=== PATIENT | female | born 1985 | race Caucasian/White ===

== ENCOUNTER 2016-12-21 00:13 | Emergency (ER) | payer SELFPAY ==
[2016-12-21 00:28] VITALS: BP 123/82
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
== END 2016-12-21 02:01 | disposition home or self-care (01) ==
LOC: ED 00:13
DX: M54.2 Cervicalgia (principal); M54.9 Dorsalgia, unspecified; M41.84 Other forms of scoliosis, thoracic region
CPT/HCPCS: 72050; 72070; 72110; 99281

== ENCOUNTER 2016-12-21 13:38 | Emergency (ER) | payer SELFPAY ==
[2016-12-21 15:14] VITALS: BP 122/71
[2016-12-21] MEDS ORDERED: Acetaminophen TAB* 325 MG PO ONE (16:46)
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
== END 2016-12-21 17:15 | disposition home or self-care (01) ==
LOC: UCEAST 13:38
DX: S06.0X0A Concussion without loss of consciousness, initial encounter (principal); S16.1XXA Strain of muscle, fascia and tendon at neck level, initial encounter; S29.012A Strain of muscle and tendon of back wall of thorax, initial encounter; S39.012A Strain of muscle, fascia and tendon of lower back, initial encounter; S20.219A Contusion of unspecified front wall of thorax, initial encounter; V43.53XA Car driver injured in collision with pick-up truck in traffic accident, initial encounter; Y93.89 Activity, other specified; Y92.410 Unspecified street and highway as the place of occurrence of the external cause; Z32.02 Encounter for pregnancy test, result negative; Z88.4 Allergy status to anesthetic agent; Z72.0 Tobacco use; Z71.6 Tobacco abuse counseling
CPT/HCPCS: 81002; 81025; 99212; A9270-GY; G0463

== ENCOUNTER 2016-12-24 11:24 | Emergency (ER) | payer OTHER ==
[2016-12-24 14:37] VITALS: BP 105/62
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
== END 2016-12-24 15:28 | disposition home or self-care (01) ==
LOC: UCCORT 11:24
DX: S16.1XXA Strain of muscle, fascia and tendon at neck level, initial encounter (principal); S39.012A Strain of muscle, fascia and tendon of lower back, initial encounter; S29.012A Strain of muscle and tendon of back wall of thorax, initial encounter; V43.52XA Car driver injured in collision with other type car in traffic accident, initial encounter; Y92.9 Unspecified place or not applicable; Z72.0 Tobacco use; Z88.8 Allergy status to other drugs, medicaments and biological substances
CPT/HCPCS: 99213; G0463

== ENCOUNTER 2017-01-03 09:03 | Emergency (ER) | payer OTHER ==
[2017-01-03 10:29] VITALS: BP 135/78
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
== END 2017-01-03 11:00 | disposition home or self-care (01) ==
LOC: UCCORT 09:03
DX: S16.1XXD Strain of muscle, fascia and tendon at neck level, subsequent encounter (principal); S39.012D Strain of muscle, fascia and tendon of lower back, subsequent encounter; V49.9XXD Car occupant (driver) (passenger) injured in unspecified traffic accident, subsequent encounter; Z88.4 Allergy status to anesthetic agent; Z72.0 Tobacco use
CPT/HCPCS: 99212; G0463

== ENCOUNTER 2017-01-28 09:35 | Emergency (ER) | payer BC, OTHER ==
[2017-01-28 10:51] VITALS: BP 114/75
--- NOTE | 2017-01-28 11:08 | UC ---
Lower Extremity/Ankle HPI - HPI Summary HPI Summary: Patient dropped a heavy mirror on her left toes area is brusied, hard to bend and slightly swollen, she took pain meds prior to arrival. - History of Current Complaint Chief Complaint: UCLowerExtremity Stated Complaint: LEFT BIG TOE PAIN Time Seen by Provider: 01/28/17 10:52 Hx Obtained From: Patient Hx Last Menstrual Period: 01/16/17 ?: No Onset/Duration: Sudden Onset, Lasting Days Severity Initially: Moderate Severity Currently: Moderate Aggravating Factor(s): Standing, Ambulation Alleviating Factor(s): Nothing Able to Bear Weight: Yes - Allergies/Home Medications Allergies/Adverse Reactions: Allergies Allergy/AdvReac Type Severity Reaction Status Date / Time anesthesia Allergy Severe Anaphylatic Uncoded 01/28/17 10:40 Shock Home Medications: Home Medications Acetaminophen TAB* [Tylenol TAB*] 650 mg PO Q4H PRN 01/28/17 [History Confirmed 01/28/17] PMH/Surg Hx/FS Hx/Imm Hx Previously Healthy: Yes Endocrine History Of: Denies: Diabetes, Thyroid Disease Cardiovascular History Of: Denies: Cardiac Disorders, Hypertension Respiratory History Of: Denies: COPD, Asthma GI/ History Of: Denies: Ulcer - Surgical History Surgical History: Yes Surgery Procedure, Year, and Place: ear tubes and tonsilectomy as child - Family History Known Family History: Negative: Cardiac Disease, Hypertension, Diabetes - Social History Alcohol Use: Occasionally Substance Use Type: None Smoking Status (MU): Current Some Day Smoker Type: Cigarettes Amount Used/How Often: occasional use Review of Systems Constitutional: Negative Skin: Bruising Eyes: Negative ENT: Negative Respiratory: Negative Cardiovascular: Negative Gastrointestinal: Negative Genitourinary: Negative Motor: Negative Neurovascular: Negative Musculoskeletal: Arthralgia, Decreased ROM - great toe, Edema, Myalgia Neurological: Negative Psychological: Negative All Other Systems Reviewed And Are Negative: Yes Physical Exam Triage Information Reviewed: Yes Appearance: Well-Appearing, Well-Nourished, Pain Distress Vital Signs: Initial Vital Signs Temp 100 F 01/28/17 10:41 Pulse 86 01/28/17 10:41 Resp 16 01/28/17 10:41 BP 114/75 01/28/17 10:41 Pulse Ox 100 01/28/17 10:41 Eye Exam: Normal Eyes: Positive: Conjunctiva Clear ENT Exam: Normal ENT: Positive: Normal ENT inspection, Hearing grossly normal, Pharynx normal, TMs normal Dental Exam: Normal Neck exam: Normal Neck: Positive: Supple, Nontender, No Lymphadenopathy Respiratory Exam: Normal Respiratory: Positive: Chest non-tender, Lungs clear, Normal breath sounds Cardiovascular Exam: Normal Cardiovascular: Positive: RRR, No Murmur, Pulses Normal Abdominal Exam: Normal Abdomen Description: Positive: Nontender, No Organomegaly, Soft Bowel Sounds: Positive: Present Musculoskeletal: Positive: Strength Intact, ROM Limited @ - left great toe, Edema @ - left great toe Neurological Exam: Normal Neurological: Positive: Alert, Muscle Tone Normal Psychological Exam: Normal Skin: Positive: Other - bruised on left toe Lower Extremity Course/Dx - Course Course Of Treatment: hx obtained, exam performed, meds reviewed, xray obtained for left toe, neg for fracture, - Differential Dx/Diagnosis Differential Diagnosis/HQI/PQRI: Contusion, Dislocation, Fracture (Closed), Infection Provider Diagnoses: contusion Discharge - Discharge Plan Condition: Stable Disposition: HOME Patient Education Materials: Contusion in Adults (ED) Additional Instructions: rest, ice the toe, elevate at rest. There was no sign of fracture on todays xray. ibuprofen and tylenol for pain. It will take a week or two fro complete resoultion. Warm soaks will aide healing.
--- NOTE | 2017-01-28 11:22 | RAD ---
INDICATION: Left great toe injury COMPARISON: None TECHNIQUE: AP, lateral, and oblique views were obtained. FINDINGS: The bony structures, joint spaces, and soft tissues are normal for age. IMPRESSION: NO ACUTE FRACTURE.
== END 2017-01-28 11:51 | disposition home or self-care (01) ==
LOC: UCCORT 09:35
DX: S90.112A Contusion of left great toe without damage to nail, initial encounter (principal); W20.8XXA Other cause of strike by thrown, projected or falling object, initial encounter; Y93.9 Activity, unspecified; Y92.9 Unspecified place or not applicable; Z88.4 Allergy status to anesthetic agent; Z72.0 Tobacco use
CPT/HCPCS: 99211; G0463

== ENCOUNTER 2018-01-18 10:56 | Emergency (ER) | payer BC ==
[2018-01-18 11:08] VITALS: BP 125/57
[2018-01-18] MEDS ORDERED: Ibuprofen TAB* 800 MG PO ONE (11:30)
[2018-01-18] MEDS ORDERED: Cyclobenzaprine TAB* 10 MG PO ONE (11:30)
--- NOTE | 2018-01-18 11:31 | UC ---
Neck Pain HPI - HPI Summary HPI Summary: patient c/o that for the past 2 days she has been having pain on neck and shoulder. It started after she hiked, went to the gym and did miscellaneous chores 2 days ago. Soreness worsened over the course of 2 days and she can now barely move her neck due to the pain. Also c/o stiffness left shoulder, had "a pinched nerve " on shoulder in the past. Took ibuprofen with relief at !:30a, was able able to sleep until 6am - History of Current Complaint Chief Complaint: UCUpperExtremity Stated Complaint: NECK PAIN, AND SHOULDER PAIN Time Seen by Provider: 01/18/18 11:14 Hx Last Menstrual Period: 12/29/17 Pain Intensity: 4 - Allergies/Home Medications Allergies/Adverse Reactions: Allergies Allergy/AdvReac Type Severity Reaction Status Date / Time anesthesia Allergy Severe Anaphylatic Uncoded 01/18/18 11:08 Shock Home Medications: Home Medications Ibuprofen 400 mg PO Q6H PRN 01/18/18 [History Confirmed 01/18/18] PMH/Surg Hx/FS Hx/Imm Hx - Surgical History Surgical History: Yes Surgery Procedure, Year, and Place: ear tubes and tonsilectomy as child - Family History Known Family History: Negative: Cardiac Disease, Hypertension, Diabetes - Social History Alcohol Use: Occasionally Substance Use Type: None Smoking Status (MU): Light Every Day Tobacco Smoker Type: Cigarettes Amount Used/How Often: occasional use 1-2 sig Review Of Systems Musculoskeletal: Positive: Arthralgia, Myalgia All Other Systems Reviewed And Are Negative: Yes Physical Exam Triage Information Reviewed: Yes Appearance: Well-Appearing, Pain Distress Vital Signs: Initial Vital Signs Temp 98.4 F 01/18/18 11:03 Pulse 92 01/18/18 11:03 Resp 16 01/18/18 11:03 BP 125/57 01/18/18 11:03 Pulse Ox 100 01/18/18 11:03 Vital Signs Reviewed: Yes Eyes: Positive: Conjunctiva Clear ENT: Positive: Normal ENT inspection Neck: Positive: No Lymphadenopathy, Nuchal Rigidity, Tenderness @ - supraspinatus, trapezius areas Respiratory: Positive: Chest non-tender, Lungs clear, Normal breath sounds, No respiratory distress Cardiovascular: Positive: RRR, No Murmur, Pulses Normal, Brisk Capillary Refill Abdomen Description: Positive: Nontender Musculoskeletal: Positive: Strength Intact, No Edema, ROM Limited @ - left shoulder on abduction and elevation, Chan positive. ROM limited neck Neck Pain Course/Dx - Course Course Of Treatment: Start medications as prescribed. f/u with orthopedics. Xrays show cervical spine straightening, xrays of left shoulder unremarkable. Finding of thoracic scoliosis. - Differential Dx/Diagnosis Provider Diagnoses: Cervical strain. Left shoulder pain Discharge - Discharge Plan Condition: Stable Disposition: HOME Patient Education Materials: Cervical Strain (ED), Shoulder Pain (ED) Forms: *Work Release Referrals: René Grajeda MD [Primary Care Provider] - René Phillips MD [Medical Doctor] -
[2018-01-18] MEDS ORDERED: Ibuprofen TAB* 400 MG PO ONE (11:35)
--- NOTE | 2018-01-18 12:18 | RAD ---
HISTORY: Neck pain COMPARISONS: December 21, 2016 VIEWS: 3, Frontal, lateral, and open-mouth odontoid views of the cervical spine. FINDINGS: The cervical spine is visualized from the skull base through C7-T1. ALIGNMENT: There is straightening of the normal cervical lordosis. VERTEBRAL BODIES: The odontoid process is intact. The atlantoaxial intervals are symmetric. JOINTS: There is no subluxation or dislocation. The facet joints are unremarkable. INTERVERTEBRAL DISCS: There is mild loss of intervertebral disc height at C6-C7. SOFT TISSUE: The prevertebral soft tissues are normal. OTHER: The skull base is normal. The lung apices are clear. IMPRESSION: STRAIGHTENING OF THE CERVICAL LORDOSIS. MILD DEGENERATIVE DISC DISEASE AT C6-C7.
--- NOTE | 2018-01-18 12:21 | RAD ---
HISTORY: Left shoulder pain COMPARISONS: None VIEWS: 5, Frontal internal rotation, external rotation, outlet, and axillary views of the left shoulder FINDINGS: BONE DENSITY: Normal. BONES: There is no displaced fracture. JOINTS: There is no arthropathy. ALIGNMENT: There is no dislocation. SOFT TISSUES: Unremarkable. OTHER FINDINGS: There is a scoliotic curvature of the thoracic spine. IMPRESSION: NO ACUTE OSSEOUS INJURY. IF SYMPTOMS PERSIST, RECOMMEND REPEAT IMAGING.
== END 2018-01-18 12:44 | disposition home or self-care (01) ==
LOC: UCEAST 10:56
DX: S16.1XXA Strain of muscle, fascia and tendon at neck level, initial encounter (principal); M25.512 Pain in left shoulder; X58.XXXA Exposure to other specified factors, initial encounter; Y92.9 Unspecified place or not applicable; F17.210 Nicotine dependence, cigarettes, uncomplicated
CPT/HCPCS: 72040; 99212; A9270-GY; G0463

== ENCOUNTER 2019-12-21 13:32 | Emergency (ER) | payer SELFPAY ==
[2019-12-21 14:29] VITALS: BP 120/65
[2019-12-21] MEDS ORDERED: Acetaminophen TAB* 325 MG PO ONE (14:41)
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
== END 2019-12-21 16:35 | disposition home or self-care (01) ==
LOC: UCCORT 13:32
DX: S06.0X0A Concussion without loss of consciousness, initial encounter (principal); Y04.0XXA Assault by unarmed brawl or fight, initial encounter; Y92.89 Other specified places as the place of occurrence of the external cause; M54.2 Cervicalgia; R11.0 Nausea; F17.210 Nicotine dependence, cigarettes, uncomplicated; Z88.4 Allergy status to anesthetic agent
CPT/HCPCS: 70450; 72125; 99211; A9270-GY; G0463

== ENCOUNTER 2019-12-25 10:00 | Emergency (ER) | payer SELFPAY ==
[2019-12-25 10:53] VITALS: BP 117/74
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
== END 2019-12-25 11:45 | disposition home or self-care (01) ==
LOC: UCCORT 10:00
DX: S16.1XXA Strain of muscle, fascia and tendon at neck level, initial encounter (principal); S06.0X0A Concussion without loss of consciousness, initial encounter; F17.210 Nicotine dependence, cigarettes, uncomplicated; Z88.6 Allergy status to analgesic agent; Y04.0XXA Assault by unarmed brawl or fight, initial encounter; Y92.9 Unspecified place or not applicable; Y99.0 Civilian activity done for income or pay
CPT/HCPCS: 99212; G0463